=== PATIENT | male | born 1945 | race Caucasian/White ===

== ENCOUNTER 2022-11-03 16:33 | Emergency (ER) | payer MEDICARE, OTHER, SELFPAY ==
[2022-11-03] VITALS (14 sets, daily range): BP systolic 117–133; BP diastolic 75–80; PULSE 73–92; RESP 18; TEMP 36.1; O2SAT 91–96; BMI 23.7
[2022-11-03] MEDS: ONDANSETRON 4 MG/2 ML INJ IV (16:57)
--- NOTE | 2022-11-03 17:02 | DI.RAD.S_ITS ---
PROCEDURE: XR CHEST 1V INDICATIONS: chest pain TECHNIQUE: One view of the chest was acquired. COMPARISON: [facility], CR, XR CHEST 1 VIEW, 03/28/2018, 16:35. FINDINGS: Surgical changes and devices: Post CABG changes are seen. Lungs and pleura: On this semiupright portable chest examination, no large pneumothorax or large pleural effusions are seen. No focal infiltrates are seen. Mediastinum: The cardiac contours are within normal limits. The aorta demonstrates calcification and tortuosity. Bones and chest wall: Age-appropriate bony degenerative changes are seen. No suspicious bony lesions. Overlying soft tissues appear unremarkable. IMPRESSION: Limited portable chest examination, without a significant cardiopulmonary abnormality identified. Postoperative and degenerative changes are seen. Dictated by: Bradley Acuna M.D. on 11/03/2022 at 16:44 Approved by: Bradley Acuna M.D. on 11/03/2022 at 16:45
[2022-11-03 17:11] LABS: Add Manual Diff / Slide Review NO; Basophils Absolute Auto 0 /uL (0-100); Basophils Percent Auto 0.3 % (0-2); Eosinophils Absolute Auto 0 /uL (0-450); Eosinophils Percent Auto 0.1 % (2-4); Hematocrit 44.8 % (41-53); Hemoglobin 15.6 g/dL (13.5-17.5); Lymphocytes Absolute Auto 600 /uL (1100-4500); Lymphocytes Percent Auto 5.6 % (25-40); Mean Corpuscular HGB Conc 34.8 % (30-36); Mean Corpuscular Hemoglobin 30.5 PG (26-34); Mean Corpuscular Volume 87.6 fL (80-100); Monocytes Absolute Auto 200 /uL (0-900); Monocytes Percent Auto 2.2 % (3-14); Neutrophils Absolute Auto 9800 /uL (1500-7000); Neutrophils Percent Auto 91.8 % (50-75); Platelet Count 185 X10^3/uL (150-400); Red Blood Cell Count 5.11 X10^6/uL (4.5-5.9); Red Cell Distribution Width 13.7 % (11.6-14.8); White Blood Cell Count 10.7 X10^3/uL (4.5-11.0)
[2022-11-03] MEDS: ASPIRIN 81 MG CHEW TAB 324 MG PO (17:19)
[2022-11-03 17:20] LABS: Alanine Aminotransferase 22 IU/L (<50); Albumin 4.4 g/dL (3.5-5.0); Albumin Globulin Ratio 1.5 (1.0-2.8); Alkaline Phosphatase 135 U/L (38-126); Aspartate Aminotransferase 29 IU/L (17-59); BUN Creatinine Ratio 16.9 (6-22); Bilirubin Total 1.6 mg/dL (0.2-1.3); Blood Urea Nitrogen 11 mg/dL (9-20); Calcium 8.6 mg/dL (8.4-10.2); Carbon Dioxide 24 mmol/L (22-32); Chloride 96 mmol/L (98-107); Estimated Glomerular Filt Rate > 60 mL/min (>60); Globulin 2.9 g/dL (1.7-4.1); Glucose 197 mg/dL (80-110); HEMOLYSIS < 15 (0-50); Lipase 75 U/L (23-300); Potassium 3.5 mmol/L (3.4-5.1); Sodium 133 mmol/L (137-145); Total Protein 7.3 g/dL (6.3-8.2)
[2022-11-03] MEDS: SODIUM CHLORIDE 0.9% 1,000 ML 150 ML IV (17:20)
[2022-11-03 17:21] LABS: Creatine Kinase 86 U/L (55-170)
[2022-11-03 17:32] LABS: NT-proBNP (BNP-Adult 18+) 316 pg/mL (<450); Troponin I < 0.012 ng/mL (0.01-0.034)
--- NOTE | 2022-11-03 17:41 | ED.ABDPAIN ---
HPI - Abdominal Pain <Adelaida Marcum PA-C - Last Filed: 11/03/22 20:21> General Chief Complaint: Abdominal Pain Stated Complaint: Sicker than all hell Time Seen by Provider: 11/03/22 16:57 Source: patient and family Mode of arrival: Ambulatory History of Present Illness HPI narrative: 77-year-old male hx (per family) of abdominal aortic aneurysm repair, dbl bypass, dementia presents with family from [facility] with concern for multiple episodes of vomiting today and looking pale and sweaty with these episodes. Family state that they did visit him yesterday and at that time he had said that his chest was hurting him a little bit. Otherwise they do not know of any symptoms until this morning around lunchtime when staff called and said that they were sending him to the hospital. He was already seen today at [facility], but reportedly did not have any labs done and was released back to his [facility] facility without any known cause for his symptoms. He had persistent vomiting at the [facility] care unit and they called family and advised that he should get further evaluated. They brought him to our hospital for further evaluation and state that he vomited once or twice on the way here. They transferred him in their own vehicle and he had to get out and walk around the car to throw up a few times. Patient denies any current pain, but does say ?I do not feel good. When asked to be more specific he states that he just feels tired. Family does say that he was stating he had abdominal pain earlier. They stated that the medical provider at the facility advise he should be evaluated for cardiac problems given he has a history of double bypass and was having vomiting and sweating. They are unaware if he had any change to his diet or intake over the last few days or any other symptoms. To their knowledge he has not had any diarrhea. He is not complained of chest pain for them today. No fevers. They state that nothing else was mentioned by the care facility medical staff. Related Data Allergies Allergy/AdvReac Type Severity Reaction Status Date / Time No Known Drug Allergies Allergy Verified 11/03/22 17:19 Review of Systems <LEIGH Emmanuel Last Filed: 11/03/22 20:21> Review of Systems Narrative: Unremarkable except as noted in the HPI Exam <Adelaida Marcum PA-C - Last Filed: 11/03/22 20:21> Narrative Exam Narrative: GENERAL: 77 year old patient appears stated age. Well-appearing, alert, cooperative with exam, Well-developed patient, in mild distress. HEAD: Atraumatic. Normocephalic. EYES: Pupils equal round and reactive. Extraocular motions intact. No scleral icterus. No injection or drainage. ENT: Nose without bleeding, purulent drainage. Throat without erythema, tonsillar hypertrophy or exudate. Airway patent. NECK: Trachea midline. Non tender CARDIOVASCULAR: There is a long midline scar and the patient's chest. Regular rate and rhythm without murmurs, gallops, or rubs. RESPIRATORY: Clear to auscultation. Breath sounds equal bilaterally. No wheezes, rales, or rhonchi. GASTROINTESTINAL: There is an old large vertical surgical scar on the patient's mid abdomen Abdomen soft, non-tender, nondistended. EXTREMITIES: No edema or joint tenderness. BACK: Nontender without deformity or crepitance. No flank tenderness. NEURO: AOx3. SKIN: No rash or erythema of visible areas Initial Vital Signs Initial Vital Signs: Vital Signs Temperature 96.9 F L 11/03/22 16:42 Pulse Rate 85 11/03/22 16:42 Respiratory Rate 18 11/03/22 16:42 Blood Pressure 133/80 11/03/22 16:42 Pulse Oximetry 95 11/03/22 16:42 Oxygen Delivery Method 11/03/22 16:42 <Magdalene Tovar DO - Last Filed: 11/04/22 04:25> Initial Vital Signs Initial Vital Signs: Vital Signs Temperature 96.9 F L 11/03/22 16:42 Pulse Rate 85 11/03/22 16:42 Respiratory Rate 18 11/03/22 16:42 Blood Pressure 133/80 11/03/22 16:42 Pulse Oximetry 95 11/03/22 16:42 Oxygen Delivery Method 11/03/22 16:42 Scores <Adelaida Marcum PA-C - Last Filed: 11/03/22 20:21> HEART Score Heart Score history: Slightly Suspicious Heart Score EKG: Normal (occasional PVCs) Heart Score Age: > or = 65 years old Heart Score risk factors: > 3 risk factors or hx of atherosclerotic disease Heart Score troponin: < or = to normal limit Heart Score Total: 4 <Magdalene Tovar DO - Last Filed: 11/04/22 04:25> HEART Score Heart Score Total: 4 Course <Adelaida Marcum PA-C - Last Filed: 11/03/22 20:21> Course Course Narrative: Did re-evaluate the patient and repeat his abdominal exam with no concerning findings after family stated that he had sat up earlier and said his belly hurt. They stated he pointed to directly under his ribs on both sides. He is no tenderness on repeat exam and he they said that his pain was brief and went away. They state he is only complained of abdominal pain today when he is sitting up and forward. Abdominal x-ray obtained for further evaluation. Orders Ordered: ED Orders 11/03/22 19:35 Urine Culture Stat Urine Microscopic Stat 11/03/22 20:16 CT angio chest abdomen pelvis Stat Discontinued Medications Aspirin (Aspirin 81 Mg Chew Tab) 324 mg PO NOW ONE Stop: 11/03/22 17:03 Last Admin: 11/03/22 17:19 Dose: 324 mg Documented By: TYREE Sodium Chloride (Normal Saline 0.9%) 1,000 mls @ 150 mls/hr IV CONT MAURISIO Last Infusion: 11/03/22 19:11 Dose: 0 mls/hr Documented By: Admin: 11/03/22 17:20 Dose: 150 mls/hr Documented By: TYREE Ondansetron HCl (Ondansetron 4 Mg Odt) 4 mg PO NOW PRN PRN Reason: Nausea And Vomiting Ondansetron HCl (Ondansetron 4 Mg/2 Ml Inj) 4 mg IV NOW PRN PRN Reason: Nausea And Vomiting Last Admin: 11/03/22 16:57 Dose: 4 mg Documented By: JENNIFER Ondansetron HCl (Ondansetron 4 Mg Odt Prepack) 1 bottle MISC SEEINSTR ONE Stop: 11/04/22 00:28 Last Admin: 11/04/22 00:36 Dose: 1 bottle Documented By: KELLEY Pantoprazole Sodium (Pantoprazole 40 Mg Vial) 40 mg IV NOW ONE Stop: 11/03/22 20:03 Last Admin: 11/03/22 20:07 Dose: 40 mg Documented By: KELLEY Reevaluation(s) Reevaluation #1: Family out of the room as patient needed to be cathed for obtaining urine, patient did attempt to wander out into the hallway was asked to go back to his room brought family back in. At that point patient was stating that he ?feels like shit?. Family stated he would actually see this on a fairly frequent basis and it is not atypical for him to say this. He states he is having a burning sensation in the center of his chest/base of his throat up high. Will do IV protonix, as some concern that his symptoms could be GERD/heartburn did consult attending physician regarding this. Time: 20:02 Consultations Consultation #1: did speak with RN at [facility] who states she was with the patient this morning and intermittently during the day. She stated that he was fine yesterday and this morning when she came in she was told that he had been vomiting. She stated that he vomited multiple times this morning and while he was in route to [facility], and also just before leaving to come to [facility]. She states at no time that he complained of abdominal chest pain or anything else. She does say he is not had any fevers recently. Patient's medical history/paperwork is being faxed. Time: 19:50 Vital Signs Vital signs: Vital Signs - 8 hr 11/03/22 20:42 11/03/22 21:00 11/03/22 21:30 Pulse Rate 73 85 80 Respiratory Rate Blood Pressure Pulse Oximetry 95 94 92 11/03/22 22:00 11/03/22 22:30 11/03/22 23:00 Pulse Rate 78 78 78 Respiratory Rate 18 Blood Pressure Pulse Oximetry 92 93 94 11/03/22 23:30 11/04/22 00:00 11/04/22 00:30 Pulse Rate 81 82 Respiratory Rate Blood Pressure 139/79 Pulse Oximetry 91 94 11/04/22 00:30 11/04/22 00:38 Pulse Rate 86 80 Respiratory Rate 18 Blood Pressure 139/79 Pulse Oximetry 94 95 <Magdalene Tovar, - Last Filed: 11/04/22 04:25> Orders Ordered: ED Orders 11/03/22 19:35 Urine Culture Stat Urine Microscopic Stat 11/03/22 20:16 CT angio chest abdomen pelvis Stat Discontinued Medications Aspirin (Aspirin 81 Mg Chew Tab) 324 mg PO NOW ONE Stop: 11/03/22 17:03 Last Admin: 11/03/22 17:19 Dose: 324 mg Documented By: TYREE Sodium Chloride (Normal Saline 0.9%) 1,000 mls @ 150 mls/hr IV CONT MAURISIO Last Infusion: 11/03/22 19:11 Dose: 0 mls/hr Documented By: Admin: 11/03/22 17:20 Dose: 150 mls/hr Documented By: TYREE Ondansetron HCl (Ondansetron 4 Mg Odt) 4 mg PO NOW PRN PRN Reason: Nausea And Vomiting Ondansetron HCl (Ondansetron 4 Mg/2 Ml Inj) 4 mg IV NOW PRN PRN Reason: Nausea And Vomiting Last Admin: 11/03/22 16:57 Dose: 4 mg Documented By: JENNIFER Ondansetron HCl (Ondansetron 4 Mg Odt Prepack) 1 bottle MISC SEEINSTR ONE Stop: 11/04/22 00:28 Last Admin: 11/04/22 00:36 Dose: 1 bottle Documented By: KELLEY Pantoprazole Sodium (Pantoprazole 40 Mg Vial) 40 mg IV NOW ONE Stop: 11/03/22 20:03 Last Admin: 11/03/22 20:07 Dose: 40 mg Documented By: KELLEY Consultations Consultation #2: Dr. Dunaway, CVT surgery [facility]: States does not fix this area and to speak with vascular surgery Consultation #3: Dr. Pj Sebastian: Reviewed patient's CTA in recent history states that he suspect patient is having bleed and needs repair but is in a location that requires treatment at tertiary care facility. Recommends you do have or [place] as possible options. Additional Consultation(s): Patient imaging pushed to [facility], called to consult: Patient family after further discussion elects not to pursue treatment and consult was canceled. Vital Signs Vital signs: Vital Signs - 8 hr 11/03/22 20:42 11/03/22 21:00 11/03/22 21:30 Pulse Rate 73 85 80 Respiratory Rate Blood Pressure Pulse Oximetry 95 94 92 11/03/22 22:00 11/03/22 22:30 11/03/22 23:00 Pulse Rate 78 78 78 Respiratory Rate 18 Blood Pressure Pulse Oximetry 92 93 94 11/03/22 23:30 11/04/22 00:00 11/04/22 00:30 Pulse Rate 81 82 Respiratory Rate Blood Pressure 139/79 Pulse Oximetry 91 94 11/04/22 00:30 11/04/22 00:38 Pulse Rate 86 80 Respiratory Rate 18 Blood Pressure 139/79 Pulse Oximetry 94 95 MDM - Abdominal Pain <Adelaida Marcum PA-C - Last Filed: 11/03/22 20:21> Lab Data 11/03/22 16:55 11/03/22 16:55 Labs: Lab Results 11/03/22 11/03/22 11/03/22 Range/Units 16:55 16:55 16:55 WBC 10.7 (4.5-11.0) X10^3/uL RBC 5.11 (4.5-5.9) X10^6/uL Hgb 15.6 (13.5-17.5) g/dL Hct 44.8 (41-53) % MCV 87.6 (80-100) fL MCH 30.5 (26-34) PG MCHC 34.8 (30-36) % RDW 13.7 (11.6-14.8) % Plt Count 185 (150-400) X10^3/uL Neut % (Auto) 91.8 H (50-75) % Lymph % (Auto) 5.6 L (25-40) % Concho % (Auto) 2.2 L (3-14) % Eos % (Auto) 0.1 L (2-4) % Baso % (Auto) 0.3 (0-2) % Neut # (Auto) 9800 H (4327-9570) /uL Lymph # (Auto) 600 L (7080-2411) /uL Concho # (Auto) 200 (0-900) /uL Eos # (Auto) 0 (0-450) /uL Baso # (Auto) 0 (0-100) /uL Sodium 133 L (137-145) mmol/L Potassium 3.5 (3.4-5.1) mmol/L Chloride 96 L (98-107) mmol/L Carbon Dioxide 24 (22-32) mmol/L BUN 11 (9-20) mg/dL Creatinine 0.65 L (0.66-1.25) mg/dL Estimated GFR > 60 (>60) mL/min BUN/Creatinine Ratio 16.9 (6-22) Glucose 197 H (80-110) mg/dL Calcium 8.6 (8.4-10.2) mg/dL Total Bilirubin 1.6 H (0.2-1.3) mg/dL AST 29 (17-59) IU/L ALT 22 (<50) IU/L Alkaline Phosphatase 135 H (38-126) U/L Total Creatine Kinase 86 (55-170) U/L CK-MB (CK-2) TNP CK-MB (CK-2) Rel Index TNP Troponin I < 0.012 (0.01-0.034) ng/mL NT-Pro-B Natriuret Pep 316 (<450) pg/mL Total Protein 7.3 (6.3-8.2) g/dL Albumin 4.4 (3.5-5.0) g/dL Globulin 2.9 (1.7-4.1) g/dL Albumin/Globulin Ratio 1.5 (1.0-2.8) Lipase 75 (23-300) U/L Urine RBC (0-5/HPF) Urine WBC (0-5/HPF) Ur Squamous Epith Cells (0-5/HPF) Amorphous Sediment Urine Bacteria (None) SARS-CoV-2 (PCR) (Negative) Influenza A (RT-PCR) (NEGATIVE) Influenza B (RT-PCR) (NEGATIVE) RSV (PCR) (Negative) 11/03/22 11/03/22 11/03/22 Range/Units 17:03 19:00 19:35 WBC (4.5-11.0) X10^3/uL RBC (4.5-5.9) X10^6/uL Hgb (13.5-17.5) g/dL Hct (41-53) % MCV (80-100) fL MCH (26-34) PG MCHC (30-36) % RDW (11.6-14.8) % Plt Count (150-400) X10^3/uL Neut % (Auto) (50-75) % Lymph % (Auto) (25-40) % Concho % (Auto) (3-14) % Eos % (Auto) (2-4) % Baso % (Auto) (0-2) % Neut # (Auto) (0996-5855) /uL Lymph # (Auto) (1134-9848) /uL Concho # (Auto) (0-900) /uL Eos # (Auto) (0-450) /uL Baso # (Auto) (0-100) /uL Sodium (137-145) mmol/L Potassium (3.4-5.1) mmol/L Chloride (98-107) mmol/L Carbon Dioxide (22-32) mmol/L BUN (9-20) mg/dL Creatinine (0.66-1.25) mg/dL Estimated GFR (>60) mL/min BUN/Creatinine Ratio (6-22) Glucose (80-110) mg/dL Calcium (8.4-10.2) mg/dL Total Bilirubin (0.2-1.3) mg/dL AST (17-59) IU/L ALT (<50) IU/L Alkaline Phosphatase (38-126) U/L Total Creatine Kinase 94 (55-170) U/L CK-MB (CK-2) TNP CK-MB (CK-2) Rel Index TNP Troponin I < 0.012 (0.01-0.034) ng/mL NT-Pro-B Natriuret Pep (<450) pg/mL Total Protein (6.3-8.2) g/dL Albumin (3.5-5.0) g/dL Globulin (1.7-4.1) g/dL Albumin/Globulin Ratio (1.0-2.8) Lipase (23-300) U/L Urine RBC 1-5/hpf (0-5/HPF) Urine WBC 0-1/hpf (0-5/HPF) Ur Squamous Epith Cells 0-1 /hpf (0-5/HPF) Amorphous Sediment 1+ Urine Bacteria Occasional (0-1) (None) SARS-CoV-2 (PCR) Negative (Negative) Influenza A (RT-PCR) Flu a negative (NEGATIVE) Influenza B (RT-PCR) Flu b negative (NEGATIVE) RSV (PCR) Negative (Negative) Point of care testing: Urine Dip Bedside Urine Glucose Negative Bedside Urine Bilirubin - Negative Bedside Urine Ketone ++ 40 Urine Specific Sasser 1.015 Bedside Urine Occult Blood +/- Bedside Urine pH 7 Bedside Urine Protein ++ 100 Bedside Urine Urobilinogen +/- 1mg Bedside Urine Nitrite - Negative Bedside Urine Leukocytes - Negative Esterase Imaging Data Chest x-ray: Radiologist's Impression: [address] [address] XRay Report Signed Patient: Klever Alvarez MR#: [id number] : 1945 Acct:[id number] Age/Sex: 77 / M Date of Service: 11/03/22 Loc: ED Accession Number: [id number] ?? Procedure: XR chest 1V Ordering Provider: Adelaida Marcum P.A-C PROCEDURE:? XR CHEST 1V ? INDICATIONS:? chest pain ? TECHNIQUE:? One view of the chest was acquired.? ? COMPARISON:? [facility], , XR CHEST 1 VIEW, 03/28/2018, 16:35. ? FINDINGS:? ? Surgical changes and devices:? Post CABG changes are seen.? ? Lungs and pleura:? On this semiupright portable chest examination, no large pneumothorax or large pleural effusions are seen.? No focal infiltrates are seen.? ? Mediastinum:? The cardiac contours are within normal limits. The aorta demonstrates calcification and tortuosity. ? Bones and chest wall:? Age-appropriate bony degenerative changes are seen.? No suspicious bony lesions.? Overlying soft tissues appear unremarkable.? IMPRESSION:? ? Limited portable chest examination, without a significant cardiopulmonary abnormality identified.? ? Postoperative and degenerative changes are seen.? ? ? Dictated by: Bradley Acuna M.D. on 11/03/2022 at 16:44 ? ? Approved by: Bradley Acuna M.D. on 11/03/2022 at 16:45?? Abdominal x-ray: Radiologist's Impression: [address] [address] XRay Report Signed Patient: Klever Alvarez MR#: [id number] : 1945 Acct:[id number] Age/Sex: 77 / M Date of Service: 11/03/22 Loc: ED Accession Number: [id number] ?? Procedure: XR abdomen 1V Ordering Provider: Adelaida Marcum P.A-C PROCEDURE:? XR ABDOMEN 1V ? INDICATIONS:? vomiting, normal labs, dementia, poor historian ? TECHNIQUE:? One view of the abdomen acquired.? ? COMPARISON:? [facility], CR, XR CHEST 1V, 11/03/2022, 17:22. ? FINDINGS:? ? Surgical changes and devices:? None.? ? Bowel:? Bowel gas pattern is nonspecific and nonobstructive.? ? Soft tissues:? Renal contours are obscured by colonic stool.? Cannot exclude small renal calculi.? Visualized solid organ contours appear normal in size.? ? Bones:? No suspicious bony lesions.? ? IMPRESSION:? Nonspecific, nonobstructive bowel gas pattern. ? ? Dictated by: Taz Barber M.D. on 11/03/2022 at 19:27 ? ? Approved by: Taz Barber M.D. on 11/03/2022 at 19:28?? ECG Data Attestation: I personally reviewed and interpreted this ECG as follows: Interpretation: Ventricular rate 84 sinus rhythm with occasional PVCs, appear unifocal, WI interval 210 QRS 120 QT 498ms EKG also reviewed by attending physician Dr. Huerta Treatment and Disposition Shared decision making:: Shared decision-making was used in determining this patient's evaluation and treatment in the emergency department and follow-up plan MDM Narrative Medical decision making narrative: 77-year-old male history of dementia and double bypass (per family) and HTN, HLD, presented from [facility] care [facility] with family-, sister, and son with concern for persistent vomiting today. Patient himself is a poor historian however per family he did have some complaint of chest pain yesterday and some complaint of abdominal pain today, with at least 6 episodes of vomiting today. Reportedly had episodes of looking sweaty and pale associated with the vomiting. Sent for further evaluation for possible cardiac cause after he was initially seen at [facility] and discharged back to [facility] without any lab or formal evaluation done per family. Patient's exam today was unremarkable except for possibly some suprapubic discomfort with palpation, EKG did show some unifocal PVCs but was otherwise unremarkable. Patient has a heart score of 4. Labs cardiac as well as CBC CMP and viral testing for COVID flu and RSV also returned unremarkable, troponin was rechecked at 2 hours and was unchanged/in the normal range. Patient was unable to produce urine when he tried and a bladder scan did reveal that he had 450 mL retained. Urine dip was unremarkable not suggestive of a UTI. Family was unsure if he had any a previous problem with urinary retention. Later in the patient's ED stay he did have some belching and complained of some burning type pain up high in his chest and the base of his throat. Providing Protonix IV to see if this improves things, do suspect it is possible that he has some GERD/acid reflux going on that could be the cause of his symptoms, as his workup has otherwise been unremarkable. Did discuss with patient again with new attending physician has recently come on shift, given he is a poor historian in order to fully evaluate do feel we should proceed with scan, she ordered a CT angio scan for further evaluation given his history of abdominal aortic aneurysm repair. Handing off care to Dr. Tovar, ED attending, who remains on shift in the emergency department. <Magdalene Tovar DO - Last Filed: 11/04/22 04:25> Lab Data Labs: Lab Results 11/03/22 11/03/22 11/03/22 Range/Units 16:55 16:55 16:55 WBC 10.7 (4.5-11.0) X10^3/uL RBC 5.11 (4.5-5.9) X10^6/uL Hgb 15.6 (13.5-17.5) g/dL Hct 44.8 (41-53) % MCV 87.6 (80-100) fL MCH 30.5 (26-34) PG MCHC 34.8 (30-36) % RDW 13.7 (11.6-14.8) % Plt Count 185 (150-400) X10^3/uL Neut % (Auto) 91.8 H (50-75) % Lymph % (Auto) 5.6 L (25-40) % Concho % (Auto) 2.2 L (3-14) % Eos % (Auto) 0.1 L (2-4) % Baso % (Auto) 0.3 (0-2) % Neut # (Auto) 9800 H (3684-7626) /uL Lymph # (Auto) 600 L (0862-1531) /uL Concho # (Auto) 200 (0-900) /uL Eos # (Auto) 0 (0-450) /uL Baso # (Auto) 0 (0-100) /uL Sodium 133 L (137-145) mmol/L Potassium 3.5 (3.4-5.1) mmol/L Chloride 96 L (98-107) mmol/L Carbon Dioxide 24 (22-32) mmol/L BUN 11 (9-20) mg/dL Creatinine 0.65 L (0.66-1.25) mg/dL Estimated GFR > 60 (>60) mL/min BUN/Creatinine Ratio 16.9 (6-22) Glucose 197 H (80-110) mg/dL Calcium 8.6 (8.4-10.2) mg/dL Total Bilirubin 1.6 H (0.2-1.3) mg/dL AST 29 (17-59) IU/L ALT 22 (<50) IU/L Alkaline Phosphatase 135 H (38-126) U/L Total Creatine Kinase 86 (55-170) U/L CK-MB (CK-2) TNP CK-MB (CK-2) Rel Index TNP Troponin I < 0.012 (0.01-0.034) ng/mL NT-Pro-B Natriuret Pep 316 (<450) pg/mL Total Protein 7.3 (6.3-8.2) g/dL Albumin 4.4 (3.5-5.0) g/dL Globulin 2.9 (1.7-4.1) g/dL Albumin/Globulin Ratio 1.5 (1.0-2.8) Lipase 75 (23-300) U/L Urine RBC (0-5/HPF) Urine WBC (0-5/HPF) Ur Squamous Epith Cells (0-5/HPF) Amorphous Sediment Urine Bacteria (None) SARS-CoV-2 (PCR) (Negative) Influenza A (RT-PCR) (NEGATIVE) Influenza B (RT-PCR) (NEGATIVE) RSV (PCR) (Negative) 11/03/22 11/03/22 11/03/22 Range/Units 17:03 19:00 19:35 WBC (4.5-11.0) X10^3/uL RBC (4.5-5.9) X10^6/uL Hgb (13.5-17.5) g/dL Hct (41-53) % MCV (80-100) fL MCH (26-34) PG MCHC (30-36) % RDW (11.6-14.8) % Plt Count (150-400) X10^3/uL Neut % (Auto) (50-75) % Lymph % (Auto) (25-40) % Concho % (Auto) (3-14) % Eos % (Auto) (2-4) % Baso % (Auto) (0-2) % Neut # (Auto) (4349-6382) /uL Lymph # (Auto) (3115-8665) /uL Concho # (Auto) (0-900) /uL Eos # (Auto) (0-450) /uL Baso # (Auto) (0-100) /uL Sodium (137-145) mmol/L Potassium (3.4-5.1) mmol/L Chloride (98-107) mmol/L Carbon Dioxide (22-32) mmol/L BUN (9-20) mg/dL Creatinine (0.66-1.25) mg/dL Estimated GFR (>60) mL/min BUN/Creatinine Ratio (6-22) Glucose (80-110) mg/dL Calcium (8.4-10.2) mg/dL Total Bilirubin (0.2-1.3) mg/dL AST (17-59) IU/L ALT (<50) IU/L Alkaline Phosphatase (38-126) U/L Total Creatine Kinase 94 (55-170) U/L CK-MB (CK-2) TNP CK-MB (CK-2) Rel Index TNP Troponin I < 0.012 (0.01-0.034) ng/mL NT-Pro-B Natriuret Pep (<450) pg/mL Total Protein (6.3-8.2) g/dL Albumin (3.5-5.0) g/dL Globulin (1.7-4.1) g/dL Albumin/Globulin Ratio (1.0-2.8) Lipase (23-300) U/L Urine RBC 1-5/hpf (0-5/HPF) Urine WBC 0-1/hpf (0-5/HPF) Ur Squamous Epith Cells 0-1 /hpf (0-5/HPF) Amorphous Sediment 1+ Urine Bacteria Occasional (0-1) (None) SARS-CoV-2 (PCR) Negative (Negative) Influenza A (RT-PCR) Flu a negative (NEGATIVE) Influenza B (RT-PCR) Flu b negative (NEGATIVE) RSV (PCR) Negative (Negative) Point of care testing: Urine Dip Bedside Urine Glucose Negative Bedside Urine Bilirubin - Negative Bedside Urine Ketone ++ 40 Urine Specific Sasser 1.015 Bedside Urine Occult Blood +/- Bedside Urine pH 7 Bedside Urine Protein ++ 100 Bedside Urine Urobilinogen +/- 1mg Bedside Urine Nitrite - Negative Bedside Urine Leukocytes - Negative Esterase MDM Narrative Medical decision making narrative: 77-year-old male history of dementia and double bypass (per family) and HTN, HLD, presented from [facility] with family-, sister, and son with concern for persistent vomiting today. Patient himself is a poor historian however per family he did have some complaint of chest pain yesterday and some complaint of abdominal pain today, with at least 6 episodes of vomiting today. Reportedly had episodes of looking sweaty and pale associated with the vomiting. Sent for further evaluation for possible cardiac cause after he was initially seen at [facility] and discharged back to [facility] without any lab or formal evaluation done per family. Patient's exam today was unremarkable except for possibly some suprapubic discomfort with palpation, EKG did show some unifocal PVCs but was otherwise unremarkable. Patient has a heart score of 4. Labs cardiac as well as CBC CMP and viral testing for COVID flu and RSV also returned unremarkable, troponin was rechecked at 2 hours and was unchanged/in the normal range. Patient was unable to produce urine when he tried and a bladder scan did reveal that he had 450 mL retained. Urine dip was unremarkable not suggestive of a UTI. Family was unsure if he had any a previous problem with urinary retention. Later in the patient's ED stay he did have some belching and complained of some burning type pain up high in his chest and the base of his throat. Providing Protonix IV to see if this improves things, do suspect it is possible that he has some GERD/acid reflux going on that could be the cause of his symptoms, as his workup has otherwise been unremarkable. Did discuss with patient again with new attending physician has recently come on shift, given he is a poor historian in order to fully evaluate do feel we should proceed with scan, she ordered a CT angio scan for further evaluation given his history of abdominal aortic aneurysm repair. Handing off care to Dr. Tovar, ED attending, who remains on shift in the emergency department. 2/18/23 Mank: Patient signed out to myself patient has been feeling they are waiting to see if had improved after Protonix. Patient does feel much better he is sitting on the edge of the bed ready to go. Patient seen evaluated independently. Discussed with his as well as family at bedside. Patient does have a history of aneurysm repair they believe 10-15 years ago in [place], patient had reported sort of epigastric pain was unclear if patient had been having bowel movements he lives at a residential facility, family is unsure patient can not really give history he has some dementia and has difficulty giving that type of history. His workup was reviewed CT angio was obtained after noting his history of aortic bypass and patient is noted to have 3 areas of change on his CT angio. Discussed with patient's , [id number] and son at this time they would like to have little bit more information images were pushed to [place] I spoke with [facility] surgery who states that this is farther down that he would repair also spoke with vascular surgery at [place] who states that particularly the 1.4 cm focal area with hematoma is concerning for rupture and recommends transfer to tertiary care facility as it is a location he is not able to repair. Discussed with with family they elect not to continue pursuing treatment understanding that rupturing aortic aneurysm can cause . They feel that they would not pursue surgical repair based on his dementia and current state. Patient continues to feel much better he would like to return home they feel comfortable with this we discussed respect versus benefits. Patient was given print off of CT angio report so they do have this available to them. Discharge Plan Departure Patient Disposition: Home Clinical Impression: Vomiting, Aneurysm, aortic Activity Restrictions/Additional Instructions: Your workup today did show several areas with change in your aorta, as discussed I spoke with vascular surgery at [place] who recommended to be evaluated by vascular at [facility] or [place] for repair. If you change your mind about repair in the future you can talk with your physician about referral. I agree that your choice today to return home and not seek treatment is appropriate based on your current medical situation. If an aneurysm ruptures suddenly can be fatal, you can talk with your physician about continuing medication for blood pressure control as needed. I have included the CT imaging report in your discharge so you can share these details with your physician. Included as a prepack for Zofran can give 1 tablet every 6 hours as needed for nausea. Can also give Tylenol up to a 1000 mg every 6 hours as needed for pain. Please return for new or worsening symptoms, persistent vomiting, uncontrolled pain, passing out or other new or concerning changes. Stand Alone Forms: Patient Portal/API
[2022-11-03 17:47] LABS: Influenza A - CEPHEID Flu A NEGATIVE (NEGATIVE); Influenza B - CEPHEID Flu B NEGATIVE (NEGATIVE); Respiratory Syncytial Virus Negative (Negative)
[2022-11-03 17:49] LABS: COVID-19 CEPHEID 4-PLEX PCR Negative (Negative)
--- NOTE | 2022-11-03 18:33 | DI.RAD.S_ITS ---
PROCEDURE: XR ABDOMEN 1V INDICATIONS: vomiting, normal labs, dementia, poor historian TECHNIQUE: One view of the abdomen acquired. COMPARISON: [facility], CR, XR CHEST 1V, 11/03/2022, 17:22. FINDINGS: Surgical changes and devices: None. Bowel: Bowel gas pattern is nonspecific and nonobstructive. Soft tissues: Renal contours are obscured by colonic stool. Cannot exclude small renal calculi. Visualized solid organ contours appear normal in size. Bones: No suspicious bony lesions. IMPRESSION: Nonspecific, nonobstructive bowel gas pattern. Dictated by: Taz Barber M.D. on 11/03/2022 at 19:27 Approved by: Taz Barber M.D. on 11/03/2022 at 19:28
[2022-11-03 19:19] LABS: Creatine Kinase 94 U/L (55-170)
[2022-11-03 19:32] LABS: Troponin I < 0.012 ng/mL (0.01-0.034)
--- NOTE | 2022-11-03 19:49 | PC.NURSE ---
pt cath with straight catheter with dark clear urine returned
[2022-11-03 20:06] LABS: Amorphous Sediment Urine 1+; Bacteria Urine Occasional (0-1); RBC Urine 1-5/HPF (0-5/HPF); Squamous Epithelial Cell Urine 0-1 /HPF (0-5/HPF); WBC Urine 0-1/HPF (0-5/HPF)
[2022-11-03] MEDS: PANTOPRAZOLE 40 MG VIAL IV (20:07)
--- NOTE | 2022-11-03 20:16 | DI.CT.S_ITS ---
PROCEDURE: CT ANGIO CHEST ABDOMEN PELVIS INDICATIONS: vomiting, epigastric pain TECHNIQUE: Precontrast 5 mm thick sections acquired from the lung apices to the iliac crests. After the administration of intravenous contrast, 2.5 mm thick sections again acquired from the lung apices to the iliac crests. Maximum intensity projection (MIP) oblique sagittal and coronal reformats were then acquired. For radiation dose reduction, the following was used: automated exposure control. COMPARISON: [facility], CR, XR CHEST 1V, 11/03/2022, 17:22. FINDINGS: Image quality: Excellent. AORTA: Intramural hematoma: Absent Focal contrast enhancement: Intramural blood pool (< 2 mm neck or imperceptible communication with aortic lumen): Absent Ulcer-like projection (broad communication with aortic lumen > 3 mm): Present. Along the posterior aspect of the distal descending thoracic aorta, there is a focal outpouching of contrast within neck measuring roughly 1.4 cm There is a 3.3 cm overlying hematoma without adjacent inflammatory change. There is a posterior saccular aneurysm arising from the mid/infrarenal aorta posteriorly measuring about 2.6 x 2.6 x 2.0 cm. At the distal most abdominal aorta, there is mural irregularity with overlying thin hematoma. No surrounding inflammatory changes. Dissection: Absent Maximum aortic diameter: Ascending thoracic AA measures 4.2 cm in maximal diameter. Aorta tapers distally and there are no other focal fusiform aneurysms. Periaortic hematoma: Absent. CHEST: Lungs and pleura: No acute airspace opacities. No pleural effusions or pneumothorax. Central and peripheral airways are patent and normal in caliber. Mediastinum: The heart size is normal. There is extensive coronary artery calcification surgical changes of prior CABG. No pericardial effusion. Pulmonary arteries are normal caliber without central filling defect. No mediastinal or hilar adenopathy. Mid to distal esophagus demonstrates moderate circumferential wall thickening. Tiny hiatal hernia present. Bones and chest wall: No axillary adenopathy by size criteria. Thyroid gland normal . Median sternotomy wires are present. No suspicious bony lesions. No vertebral body compression fractures. ABDOMEN: Vasculature: Celiac trunk and mesenteric arteries are patent. Renal arteries are also patent. Solid organs: Liver is normal in size and enhancement. A few small liver cysts. Gallbladder is distended but with normal wall thickness and no visible calcification. . Biliary system is non dilated. Pancreas enhances normally. Spleen is normal in size and enhancement. No adrenal nodules. Both kidneys are normal in size and enhancement, without hydronephrosis. Several cortical cysts arise from each kidney. Peritoneum and bowel: Stomach and small bowel are normal. Diverticulosis throughout the colon. No acute diverticulitis. Nodes and vessels: No retroperitoneal or mesenteric adenopathy by size criteria. Inferior vena cava is normal in morphology. Miscellaneous: No ventral hernias. PELVIS: Genitourinary: Bladder wall thickness is normal. Moderate prostatomegaly. Miscellaneous: No inguinal hernias or adenopathy. Bones: No suspicious bony lesions. No vertebral body compression fractures. Disc degeneration in the lower thoracic and lower lumbar spine. No suspicious bone lesions. IMPRESSION: 1. No evidence of acute aortic dissection or rupture. 2. There are two distinct areas of focal aortic ulceration in the distal descending thoracic and distal abdominal aorta. Although there are no surrounding inflammatory changes, correlation to any prior imaging and vascular surgery consultation is recommended. 3. 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 4. Mid to distal circumferential esophageal wall thickening suggesting esophagitis. Correlate clinically. 5. Prior CABG. Dictated by: Maricruz Matthew M.D. on 11/03/2022 at 21:21 Approved by: Maricruz Matthew M.D. on 11/03/2022 at 21:40
[2022-11-04] VITALS: PULSE 82; O2SAT 94
[2022-11-04 00:30] VITALS: BP 139/79; PULSE 86; O2SAT 94
[2022-11-04] MEDS: ONDANSETRON 4 MG ODT PREPACK 1 BOTTLE MISC (00:36)
[2022-11-04 00:38] VITALS: BP 139/79; PULSE 80; RESP 18; O2SAT 95
== END 2022-11-04 00:39 | disposition home or self-care (01) ==
PROVIDERS: Emergency Medicine; Student in an Organized Health Care Education/Training Program; Emergency Provider Emergency Medicine
DX: I71.9 Aortic aneurysm of unspecified site, without rupture (principal); R11.10 Vomiting, unspecified; R07.9 Chest pain, unspecified; F03.90 Unspecified dementia, unspecified severity, without behavioral disturbance, psychotic disturbance, mood disturbance, and anxiety; Z20.822 Contact with and (suspected) exposure to COVID-19
CPT/HCPCS: 0241U; 36415; 51798; 71045; 71275; 74018; 74174; 80053; 81003; 81015; 82550; 83690; 83880; 84484; 85025; 87086; 93005; 93010; 96361; 96374; 96375; 99284; C9113; J2405; Q9967